=== PATIENT | female | born 1955 | race African-American/Black ===

== ENCOUNTER 2018-02-25 13:25 | Inpatient (IN) ==
[2018-02-25] MEDS ORDERED: SODIUM CHLORIDE 0.9% 500 ML IV STA (13:50)
[2018-02-25 14:05] LABS: Basophils % 0.2 % (0.0-0.8); Eosinophils # 0.1 10*3/uL (0.0-0.87); Eosinophils % 1.3 % (0.00-10.9); Hematocrit 41.1 VOL% (35.7-47.0); Hemoglobin 13.1 GM/DL (12.0-16.0); Immature Granulocytes % 1.7 %; Immature Granulocytes Absolute 0.14 #; Lymphocytes # 1.6 10*3/uL (1.4-4.0); Lymphocytes % 18.7 % (21.3-54.2); Mean Corpuscular HGB Conc 31.9 GM/DL (32-36); Mean Corpuscular Hemoglobin 30 PG (27-34); Mean Corpuscular Volume 94.3 FL (87-102); Mean Platelet Volume 9.4 FL (9.6-12.0); Monocytes # 0.5 10*3/uL (0.11-0.8); Monocytes % 6.2 % (1.7-12.7); Neutrophils % 71.9 % (38.7-73.9); Platelet Count 229 T/CUMM (130-400); Red Blood Count 4.36 MC/CUMM (3.8-5.5); Red Cell Distribution Width 14.6 % (9.3-17.3); White Blood Count 8.3 T/CUMM (4-12)
[2018-02-25] MEDS ORDERED: ONDANSETRON 4 MG/2 ML VIAL IV STA (14:11)
[2018-02-25 14:37] LABS: Albumin 3.6 G/DL (3.4-5.0); Bilirubin,Total 0.6 MG/DL (0.2-1.0); Calcium 8.9 MG/DL (8.5-10.1); Osmolality,Calculated 281.5 MOS/KG (273-304); Potassium 4.9 MMOL/L (3.5-5.1); Thyroid Stimulating Hormone 4.84 uIU/ml (0.358-3.74); Total Protein 6.6 G/DL (6.4-8.3)
[2018-02-25 14:38] LABS: Barbiturates Screen,Urine Negative (Negative); Benzodiazepines Screen,Urine Negative (Negative); Cannabinoid Screen,Urine Positive (Negative); Opiate Screen,Urine Positive (Negative); Phencyclidine Screen,Urine Negative (Negative)
[2018-02-25] MEDS ORDERED: ENOXAPARIN 100 MG/ML SYRINGE SUBCUT ONE (14:38)
[2018-02-25] MEDS ORDERED: ASPIRIN 325 MG TABLET ONE (14:38)
[2018-02-25] MEDS ORDERED: ASPIRIN EC 325 MG TABLET PO STA (14:45)
[2018-02-25] MEDS ORDERED: ENOXAPARIN 100 MG/ML SYRINGE SUBCUT STA (14:46)
[2018-02-25 14:55] LABS: PT Patient Result 10.6 SECS; Partial Thromboplastin Time 26.4 SECS (0-40)
[2018-02-25 15:11] LABS: Apearance,Urine CLEAR (Clear); Bilirubin,Urine Negative (Negative); Blood, Urine Negative (Negative); Glucose,Urine (UA) Negative (Negative); Hyaline Casts,Urine 10 /LPF (0-3); Ketones,Urine Negative (Negative); Mucus,Urine Few /LPF (Occasional); Nitrite,Urine Negative (Negative); Protein,Urine >=500 MG/DL; RBC,Urine <1 /HPF (0-4); Squamous Epithelial Cell,Urine Occasional /HPF (0-10); Urine Color Amber (Yellow); Urine Specific Gravity 1.018 (1.001-1.035); WBC,Urine 2 /HPF (0-6)
[2018-02-25] MEDS ORDERED: ZALEPLON 5 MG CAPSULE PO PRN ×2 (15:13→21:00)
[2018-02-25] MEDS ORDERED: diphenhydrAMINE CAP 25 MG CAPSULE PO PRN (15:13)
[2018-02-25] MEDS ORDERED: MAGNESIUM SULF RIDER 2 GM in PREMIX 1 EACH IV PRN (15:13)
[2018-02-25] MEDS ORDERED: MAGNESIUM SULF RIDER 4 GM in PREMIX 1 EACH IV PRN (15:13)
[2018-02-25] MEDS ORDERED: MORPHINE 4 MG/1 ML VIAL IV PRN (15:13)
[2018-02-25] MEDS ORDERED: DOCUSATE SODIUM 100 MG CAPSULE PO PRN (15:13)
[2018-02-25] MEDS ORDERED: POLYETHYLENE GLYCOL POWDER 17 GM PACK PO PRN (15:17)
[2018-02-25] MEDS ORDERED: DOPamine 800 MG/250 ML PREMIX IV PRN (15:18)
[2018-02-25] MEDS ORDERED: CALCIUM GLUCONATE 1,000 MG in SODIUM CHLORIDE 0.9% 100 ML IV ONE (16:00)
[2018-02-25 16:37] LABS: Lactic Acid 2.2 MMOL/L (0.4-2.0)
[2018-02-25] MEDS: SODIUM CHLORIDE 0.45% 1,000 ML IV SCH (17:28)
[2018-02-25 17:35] LABS: CKMB % 1.7 %
[2018-02-25 17:38] LABS: Troponin I 1.29 NG/ML (0.00-0.045)
[2018-02-25 19:44] LABS: CKMB % 2.1 %
[2018-02-25 19:47] LABS: Troponin I 1.19 NG/ML (0.00-0.045)
[2018-02-25] MEDS ORDERED: PRAVASTATIN 20 MG TABLET PO SCH (21:00)
[2018-02-26] MEDS: SODIUM CHLORIDE 0.45% 1,000 ML IV SCH ×2 (02:35→12:47)
[2018-02-26 04:15] LABS: Basophils % 0.2 % (0.0-0.8); Eosinophils # 0.1 10*3/uL (0.0-0.87); Eosinophils % 1.3 % (0.00-10.9); Hematocrit 38.1 VOL% (35.7-47.0); Hemoglobin 12.1 GM/DL (12.0-16.0); Immature Granulocytes % 1.3 %; Immature Granulocytes Absolute 0.14 #; Lymphocytes % 28.2 % (21.3-54.2); Mean Corpuscular HGB Conc 31.8 GM/DL (32-36); Mean Corpuscular Hemoglobin 30 PG (27-34); Mean Corpuscular Volume 93.8 FL (87-102); Mean Platelet Volume 9.8 FL (9.6-12.0); Monocytes # 0.6 10*3/uL (0.11-0.8); Monocytes % 5.5 % (1.7-12.7); Neutrophils # 6.7 10*3/uL (1.4-7.4); Neutrophils % 63.5 % (38.7-73.9); Platelet Count 224 T/CUMM (130-400); Red Blood Count 4.06 MC/CUMM (3.8-5.5); Red Cell Distribution Width 14.5 % (9.3-17.3); White Blood Count 10.6 T/CUMM (4-12)
[2018-02-26 04:41] LABS: Albumin 3.4 G/DL (3.4-5.0); Bilirubin,Direct 0.16 MG/DL (0.0-0.20); Bilirubin,Indirect 1.1 MG/DL (0.0-1.0); Bilirubin,Total 1.3 MG/DL (0.2-1.0); Total Protein 6.1 G/DL (6.4-8.3)
[2018-02-26 04:55] LABS: Albumin 3.2 G/DL (3.4-5.0); Bilirubin,Total 0.8 MG/DL (0.2-1.0); Calcium 8.5 MG/DL (8.5-10.1); Osmolality,Calculated 281.4 MOS/KG (273-304); Potassium 3.8 MMOL/L (3.5-5.1); Risk Ratio 3.76; Total Protein 6.2 G/DL (6.4-8.3); VLDL CHOLESTEROL 22.4 MG/DL
[2018-02-26] MEDS: ASPIRIN EC 81 MG TABLET PO SCH (08:44)
[2018-02-26] MEDS: PANTOPRAZOLE 40 MG TABLET PO SCH (08:46)
[2018-02-26] MEDS: ALLOPURINOL 100 MG TABLET PO SCH (08:46)
[2018-02-26] MEDS: hydrALAZINE 20 MG/1 ML VIAL IV PRN ×2 (09:31→17:42)
[2018-02-26] MEDS ORDERED: AZILSARTAN MEDOXOMIL 80 MG PO SCH (11:30)
[2018-02-26] MEDS ORDERED: amLODIPine 5 MG TABLET PO SCH (11:30)
[2018-02-26] MEDS: CHLORTHALIDONE 25 MG TABLET PO SCH (12:33)
[2018-02-26] MEDS: POTASSIUM CHLORIDE 20 MEQ TABLET PO PRN (14:41)
[2018-02-27 05:37] LABS: Basophils % 0.3 % (0.0-0.8); Eosinophils # 0.2 10*3/uL (0.0-0.87); Eosinophils % 2.6 % (0.00-10.9); Hematocrit 40.9 VOL% (35.7-47.0); Immature Granulocytes % 0.9 %; Immature Granulocytes Absolute 0.08 #; Lymphocytes # 1.8 10*3/uL (1.4-4.0); Lymphocytes % 21.1 % (21.3-54.2); Mean Corpuscular HGB Conc 31.8 GM/DL (32-36); Mean Corpuscular Hemoglobin 30 PG (27-34); Mean Corpuscular Volume 93.2 FL (87-102); Mean Platelet Volume 9.2 FL (9.6-12.0); Monocytes # 0.7 10*3/uL (0.11-0.8); Monocytes % 7.9 % (1.7-12.7); NRBC # 0.02 10*3/uL; Neutrophils # 5.8 10*3/uL (1.4-7.4); Neutrophils % 67.2 % (38.7-73.9); Platelet Count 234 T/CUMM (130-400); Red Blood Count 4.39 MC/CUMM (3.8-5.5); Red Cell Distribution Width 14.8 % (9.3-17.3); White Blood Count 8.6 T/CUMM (4-12)
[2018-02-27 06:07] LABS: Albumin 3.3 G/DL (3.4-5.0); Bilirubin,Direct 0.14 MG/DL (0.0-0.20); Bilirubin,Indirect 0.9 MG/DL (0.0-1.0); Calcium 8.6 MG/DL (8.5-10.1); Osmolality,Calculated 278.5 MOS/KG (273-304); Total Protein 6.5 G/DL (6.4-8.3)
[2018-02-27] MEDS: hydrALAZINE 20 MG/1 ML VIAL IV PRN ×3 (06:10→21:36)
[2018-02-27] MEDS: ONDANSETRON 4 MG/2 ML VIAL IV PRN (06:42)
[2018-02-27] MEDS ORDERED: MAGNESIUM HYDROXIDE SUSP 30 ML UDCUP PO PRN (08:12)
[2018-02-27] MEDS: CHLORTHALIDONE 25 MG TABLET PO SCH (08:49)
[2018-02-27] MEDS: PANTOPRAZOLE 40 MG TABLET PO SCH (08:49)
[2018-02-27] MEDS: ASPIRIN EC 81 MG TABLET PO SCH (08:49)
[2018-02-27] MEDS: ALLOPURINOL 100 MG TABLET PO SCH (08:49)
[2018-02-27] MEDS ORDERED: amLODIPine 10 MG TABLET PO SCH (09:00)
[2018-02-27] MEDS ORDERED: MEPERIDINE 25 MG/1 ML VIAL IV ONE (12:07)
[2018-02-27] MEDS ORDERED: PROMETHAZINE INJ 12.5 MG in SODIUM CHLORIDE 0.9% 50 ML IV ONE (12:30)
[2018-02-27] MEDS: CARVEDILOL 6.25 MG TABLET PO SCH ×2 (13:57→21:01)
[2018-02-27 16:08] VITALS: BP 153/79
[2018-02-27] MEDS ORDERED: MEPERIDINE 25 MG/1 ML VIAL IV PRN (19:00)
[2018-02-27] MEDS ORDERED: PROMETHAZINE INJ 12.5 MG in SODIUM CHLORIDE 0.9% 50 ML IV PRN (20:00)
[2018-02-27] MEDS ORDERED: PRAVASTATIN 20 MG TABLET PO SCH (21:00)
[2018-02-28] MEDS: ONDANSETRON 4 MG/2 ML VIAL IV PRN (01:26)
[2018-02-28 02:52] LABS: Basophils % 0.3 % (0.0-0.8); Eosinophils # 0.2 10*3/uL (0.0-0.87); Eosinophils % 2.5 % (0.00-10.9); Hematocrit 42.6 VOL% (35.7-47.0); Hemoglobin 14.1 GM/DL (12.0-16.0); Immature Granulocytes % 0.5 %; Immature Granulocytes Absolute 0.04 #; Lymphocytes # 1.9 10*3/uL (1.4-4.0); Lymphocytes % 25.5 % (21.3-54.2); Mean Corpuscular HGB Conc 33.1 GM/DL (32-36); Mean Corpuscular Hemoglobin 30 PG (27-34); Mean Corpuscular Volume 90.3 FL (87-102); Mean Platelet Volume 9.3 FL (9.6-12.0); Monocytes # 0.6 10*3/uL (0.11-0.8); Monocytes % 7.9 % (1.7-12.7); NRBC # 0.02 10*3/uL; Neutrophils # 4.7 10*3/uL (1.4-7.4); Neutrophils % 63.3 % (38.7-73.9); Platelet Count 254 T/CUMM (130-400); Red Blood Count 4.72 MC/CUMM (3.8-5.5); Red Cell Distribution Width 14.9 % (9.3-17.3); White Blood Count 7.3 T/CUMM (4-12)
[2018-02-28 03:06] LABS: Calcium 9.2 MG/DL (8.5-10.1); Potassium 3.6 MMOL/L (3.5-5.1)
[2018-02-28] MEDS: POTASSIUM CHLORIDE 20 MEQ TABLET PO PRN (04:33)
[2018-02-28] MEDS ORDERED: amLODIPine 5 MG TABLET PO SCH ×2 (09:00)
[2018-02-28] MEDS: CHLORTHALIDONE 25 MG TABLET PO SCH (10:14)
[2018-02-28] MEDS: ASPIRIN EC 81 MG TABLET PO SCH (10:14)
[2018-02-28] MEDS: CARVEDILOL 6.25 MG TABLET PO SCH (10:14)
[2018-02-28] MEDS: PANTOPRAZOLE 40 MG TABLET PO SCH (10:14)
[2018-02-28] MEDS: ALLOPURINOL 100 MG TABLET PO SCH (10:14)
[2018-02-28] MEDS ORDERED: amLODIPine 5 MG TABLET PO ONE (12:05)
[2018-03-01] MEDS ORDERED: amLODIPine 10 MG TABLET PO SCH (09:00)
[2018-03-03] MEDS ORDERED: ERGOCALCIFEROL 50,000 UNIT CAPSULE PO SCH (09:00)
== END 2018-02-28 14:00 | disposition home or self-care (01) | DRG 309 ==
LOC: EDUNIT# → EDBD → N.EDINP 13:25 → N.ED 13:25 → N.CC 15:42
PROVIDERS: ADMIT Internal Medicine Cardiovascular Disease; ATTEND Internal Medicine Cardiovascular Disease